=== PATIENT | male | born 1960 | race Caucasian/White ===

== ENCOUNTER 2025-02-21 08:14 | Observation (INO) ==
--- NOTE | 2025-02-18 14:18 | Anesthesiology Consultation ---
Date of Service February 18, 2025 Assessment & Plan (1) Encounter for pre-operative examination: - awaiting 02/18/25 confirmed EKG report. - Per bridge maintainer on 02/18/25: No known infectious disease contacts, current infectious disease symptoms in past 10 days or COVID positive test result in the past 30 days. Chart Review Chart Review: Patient NOT seen in Pre Admission Testing History Surgery Operation Date: 02/21/25 11:00 Proposed Procedures p Right Knee Extraction of Knee Implants and Placement of Articulated Spacer - Lamine Mcdonald MD Height/Weight Height: 6 ft Weight: 104.326 kg Allergies Allergy/AdvReac Type Severity Reaction Status Date / Time No Known Drug Allergies Allergy Unknown Verified 02/18/25 13:38 adhesive tape AdvReac Unknown use Verified 02/18/25 13:38 caution...hx PULLED SKIN Medications Home Medications Medication Instructions Recorded Confirmed Last Taken atorvastatin 20 mg tablet (Lipitor) 20 mg PO HS 05/11/21 02/18/25 12/14/21 diphenhydramine HCl 12.5 mg 12.5 mg PO DAILY PRN allergies 06/10/21 02/18/25 12/14/21 chewable tablet diclofenac sodium 100 mg 75 mg PO BID 12/08/21 02/18/25 12/14/21 tablet,extended release 24 hr doxycycline monohydrate 100 mg 100 mg PO BID 02/18/25 02/18/25 Unknown capsule metoprolol tartrate 25 mg tablet 25 mg PO QAM 02/18/25 02/18/25 Unknown pantoprazole 20 mg tablet,delayed 20 mg PO BID 02/18/25 02/18/25 Unknown release (Protonix) sulfamethoxazole 800 1 tab PO BID 02/18/25 02/18/25 Unknown mg-trimethoprim 160 mg tablet (Bactrim DS) Past Medical History Medical History Arthritis GERD (gastroesophageal reflux disease) controlled, stable per pt Hyperlipidemia Hypertension controlled, stable per pt Obesity Past Family History Family History Mother Family history of diabetes mellitus Other Heart disease No family history of adverse response to anesthesia Past Surgical History Surgical History H/O nasal septoplasty H/O reconstruction of anterior cruciate ligament tear History of cholecystectomy History of colonoscopy History of esophagogastroduodenoscopy (EGD) History of herniorrhaphy ABDOMINAL HERNIA REPAIR History of knee surgery R knee manipulation, EUA 03/17/21: GA: LMA#5 History of repair of rotator cuff RT/LEFT History of surgery on arm RT/LEFT BICEP TENDON REPAIR History of total right knee replacement MAY 2021 Social History Smoking Status: Never smoker Do You Dip or Chew Tobacco: No Hx Alcohol Use: Yes alcohol intake frequency: holidays/special occasions only Hx Substance Use: No substance use type: does not use Lab Results Anesthesia Preop Results Results Anesthesia Widget: WBC 7.23 K/ul (4.8-10.8) 02/18/25 Hgb 13.0 g/dL (14.0-18.0) L 02/18/25 Hct 39.9 % (42.0-52.0) L 02/18/25 Plt 386 K/uL (130-400) 02/18/25 Na 135 mmol/L (136-145) L 02/18/25 K 4.0 mmol/L (3.5-5.1) 02/18/25 Cl 99 mmol/L (98-107) 02/18/25 CO2 29 mmol/L (21-32) 02/18/25 BUN 19 mg/dl (6-23) 02/18/25 Creat 1.00 mg/dl (0.6-1.4) 02/18/25 Glucose Level 82 mg/dl (70-99(Fasting)) 02/18/25 PT 11.0 Seconds (9.0-12.0) 02/18/25 PTT 27 Seconds (21-31) 02/18/25 INR 1.0 (0.9-1.1) 02/18/25 Blood Type A Positive 02/18/25 Antibody Screen NEGATIVE 02/18/25 Testing Chest X-Ray Date: 02/18/25 Normal chest radiograph
[2025-02-21] MEDS: LR 15ML/HR IV SCH (09:20)
--- NOTE | 2025-02-21 10:10 | History & Physical Bridge Note ---
Date of Service February 21, 2025 History & Physical Bridge Note I have examined the patient, reviewed the History & Physical and in the interval since the performance of the History & Physical I have noted the following changes of clinical significance:Consent and site verified. Reemphasized need for wound care to prevent recurrence of infection. DVT PE ED prophylaxis emphasized. Range of motion to tolerance. Weightbearing as tolerated to tolerance. Will likely need 6 weeks of IV antibiotic treatment followed by reassessment with aspiration after off antibiotics for several weeks. Secondary infection total knee replacement from septicemia from cellulitis right lower extremity following Achilles tendon surgery. no changes noted
[2025-02-21] MEDS ORDERED: LIDOCAINE 2% 2 ML VIAL/AMP(20MG/ML) INFIL ONE (10:24)
[2025-02-21] MEDS ORDERED: MIDAZOLAM HCL 1 MG/ML 2ML VIAL ONE (10:24)
[2025-02-21] MEDS ORDERED: PROPOFOL IV EMULSION 10 MG/ML 20 ML VIAL IV ONE ×2 (10:24→13:25)
[2025-02-21] MEDS ORDERED: ONDANSETRON INJ 2 MG/ML 2 ML VIAL ONE ×2 (10:24→13:12)
[2025-02-21] MEDS ORDERED: ROCURONIUM BROMIDE 10 MG/ML 5 ML VIAL IV ONE ×3 (10:25→12:57)
[2025-02-21] MEDS ORDERED: ACETAMINOPHEN 1000 MG/100 ML IV IV ONE (10:29)
[2025-02-21] MEDS ORDERED: ONDANSETRON INJ 2 MG/ML 2 ML VIAL IV PRN ×2 (10:35→15:17)
[2025-02-21] MEDS ORDERED: ATROPINE SULFATE 0.1 MG/ML 10ML SYR IV PRN (10:35)
[2025-02-21] MEDS: VANCOMYCIN HCL 1000MG/20ML VIAL ONE ×2 (11:30→11:31)
[2025-02-21] MEDS ORDERED: SUGAMMADEX SODIUM 200 MG/2 ML VIAL IV ONE ×2 (12:57→13:37)
[2025-02-21] MEDS ORDERED: KETOROLAC 30 MG/ML VIAL ONE (13:20)
--- NOTE | 2025-02-21 13:37 | Post Operative Brief Note ---
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 Postop diagnosis same I identified the patient and participated in the time-out.: Yes Procedure Operation Date: 02/21/25 11:00 <No data on this case meets the specified criteria> Excisional arthroplasty removal of all cement right total knee replacement removal of tibial screw remote ACL reconstruction right knee Surgeon Lamine Mcdonald MD Collection Clerk pasha no resident or fellow available Estimated Blood Loss 100 Findings Consistent with Post-Op Diagnosis Cloudy fluid no gross purulence implants were not loose heterotopic ossification hypertrophic synovium Fluids 1400 cc of fluid Complications None
--- NOTE | 2025-02-21 13:43 | Operative Report ---
Post Operative Report Pre & Post Diagnosis Operation Date: 02/21/25 11:00 <No data on this case meets the specified criteria> Periprosthetic joint infection right total knee replacement will retained tibial hardware from remote ACL reconstruction. Postop diagnosis same I identified the patient and participated in the time-out.: Yes Procedure Operation Date: 02/21/25 11:00 <No data on this case meets the specified criteria> Excisional arthroplasty for septic total joint replacement right knee from remote infection from septicemia secondary to Achilles tendon procedure x 2 done elsewhere. Retained hardware status post remote ACL reconstruction right knee Surgeon Lamine Mcdonald MD Academic Support Coordinator pasha no resident or fellow available Estimated Blood Loss 100 Findings Consistent with Post-Op Diagnosis Cloudy fluid no gross purulence hypertrophic synovium heterotopic ossification implants were not loose. Fluids 1400 cc Specimens Bone pathology and culture Drains None Complications None Indications Positive culture x 2 verified by Synovasure for Staph aureus bacteria same as what was cultured for his septicemia from his Achilles tendon Description of Procedure After the patient was appropriate notified site verified consent verified antibiotics confirmed as being given the right lower extremity was prepped and draped in his routine fashion. Tourniquet was inflated to 275 mmHg of exsanguination of the limb and rubber bands for total of 96 minutes. The old incision was utilized and slightly extended proximally for about a centimeter. Full-thickness flaps raised. The joint was then opened. There was hypertrophic thickening of the tissue and synovium noticed and heterotopic ossification there was cloudy fluid but no gross purulence. So we mention that this was cultured and advanced including Synovasure which revealed the same organism from his previous septicemia from his previous Achilles tendon surgery on the same side. This is a staph aureus organism sensitive to everything. Once extensive synovectomy was completed and the patella was able to be everted the knee was then flexed. The patella was addressed first the saw was used to transect the pit pegs and then the bur was used to get out the remaining cement and poly. This was then irrigated and everything was cleaned out. The knee was then flexed and the femur was addressed first using a saw Genny and was loosened up avoid the margins of the femur was then ultimately removed there was no significant fracture created or no major bone loss noted. This was then all cleaned of any synovial tissue the canal was open there was no retained purulence behind that. The tibia was then addressed that was a subluxated this was used and a bur was used to again loosen up everything it was then impacted proximally removed significant cement removal was required for this into the proximal tibia and canal. This was all removed none was left. The wound was then irrigated with 1000 cc of Pulsavac and then a whole bottle of Irrisept and then another 2000 with Pulsavac. Once this was all cleaned out everything looked good the articulating spacers large femur and medial tibia were then applied. It was then welded with loose cement and then after 12 minutes everything cured everything looked good the knee was able to be flexed from 0 to 90 degrees without issues. The wounds irrigated 1 final time and closed with #2 Vicryl 2-0 Vicryl and stainless steel clips from the capsule to the subcutaneous tissue to the skin sequentially. EBL was roughly 100 cc when the tourniquet was let down and bleeding points controlled electrocautery. Ortho mix was injected around the incision site. Patient was then transferred recovery in satisfactory descending dressing applied with a rubber Kenney cotton and a knee immobilizer. To be weightbearing as tolerated but will keep his knee still for 7 to 10 days until his wound heals. With a lot of create any kind of drainage or fistula. Summary of implants femoral 53 AP large femoral articulating spacer tibia 70 mm medial lateral. DVT PE prophylaxis to start tomorrow. Will obtain ID consult for antibiotic recommendations and is likely going to be Ancef 3 times a day dose to be determined by ID on the 2 g and initiate anticoagulation tomorrow. Midline was placed today to be discharged once everything is arranged as an outpatient basis. I attest to the content of the Intraoperative Record and any orders documented therein. Any exceptions are noted below.
--- NOTE | 2025-02-21 13:48 | Discharge Summary ---
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 Principal Diagnosis Periprosthetic joint infection right knee retained hardware right tibia Discharge Data Allergies Allergy/AdvReac Type Severity Reaction Status Date / Time No Known Drug Allergies Allergy Unknown Verified 02/21/25 08:35 adhesive tape AdvReac Unknown use Verified 02/21/25 08:35 caution...hx PULLED SKIN Vaccinations None Consultations ID consult nurse consult for PICC line Procedures Performed Operation Date: 02/21/25 11:00 Actual Procedures p Right Knee Extraction Implants and Placement of Articulated Spacer(Right) - Lamine Mcdonald MD removal of tibial screw right tibia post ACL remote Ordered Studies X-rays culture pathology Diabetes Follow up None Hospital Course (1) Right knee DJD: ID consult and long-term antibiotic treatment articulating spacer with cement antibiotics Plan Discharge to home when antibiotic treatment is finalized. Total Time Total Time Spent Total Time Spent (In Minutes): 15 Discharge Plan Discharge Items Reason For Visit: post op explant right TKA for infection Discharge Diagnosis: Periprosthetic joint infection right knee Follow-up/Referrals: Bobo Robertson PA-C [Physician Agricultural Adviser] - 02/28/25 11:30 am Hui Borden D.O. [Primary Care Provider] - Add Attending Provider Instructions: DIET: * Resume previous diet. MEDICATIONS: * Please take your prescriptions as instructed at your pre-op appointment and/or see medication discharge instructions listed above. * If concerns develop, call your physician's office at . SPECIAL CARE INSTRUCTIONS: * Ice/Elevate as instructed. * Keep dressing clean, dry, intact. * Your surgical extremity may be discolored due to prepping agents used on the skin. A bluish-green tint is a normal variant and should not cause alarm. Call your doctor at [phone] if: * Temperature above 101 degrees * Pain not relieved by pain medicine ordered * There is increased drainage or redness from any incision * You have any unanswered questions, problems or concerns. FOLLOW UP VISIT: * If not already scheduled, please call the office at to schedule a follow-up appointment. Stand-Alone Forms: My [facility] Medications and DC Order Prescriptions: No Action diclofenac sodium 100 mg Tablet Extended Release 24 Hr 75 mg PO BID Patient Comments: 75 twice a day atorvastatin [Lipitor] 20 mg Tablet 20 mg PO HS Patient Comments: UNSURE IF DOSE CORRECT diphenhydramine HCl 12.5 mg Tablet,Chewable 12.5 mg PO DAILY PRN (Reason: allergies) pantoprazole [Protonix] 20 mg Tablet,Delayed Release (Dr/Ec) 20 mg PO BID metoprolol tartrate 25 mg Tablet 25 mg PO QAM sulfamethoxazole-trimethoprim [Bactrim DS] 800-160 mg Tablet 1 tab PO BID doxycycline monohydrate 100 mg Capsule 100 mg PO BID Admission Data Admit Date/Time: 02/21/25 14:02 Attending Provider: Lamine Mcdonald Admit Provider: Lamine Mcdonald Primary Care Provider: Hui Borden Other Providers: Sharlene Travis
--- NOTE | 2025-02-21 13:48 | Orthopedic Progress Note ---
Date of Service February 21, 2025 Orthopedic Progress Note Tolerated extraction of periprosthetic joint infection and tibial screw right knee. Vital signs stable afebrile. Neurovascularly baseline. X-rays pending. ID consult pending PICC line placed. Case management to arrange for discharge plan. Can be discharged anytime when antibiotic outpatient program is established.
--- NOTE | 2025-02-21 13:54 | Operative Report ---
Post Operative Report Pre & Post Diagnosis Operation Date: 02/21/25 11:00 Pre-Op Diagnosis: Right Total Knee Infection Post-Op Diagnosis: Right Total Knee Infection I identified the patient and participated in the time-out.: Yes Procedure Operation Date: 02/21/25 11:00 Actual Procedures p Right Knee Extraction Implants and Placement of Articulated Spacer(Right) - Lamine Mcdonald MD Surgeon Lamine Mcdonald M.D. Classified Copy Control Clerk Kaylie Pantoja PA-C; no resident or fellow available Estimated Blood Loss 100 Findings Consistent with Post-Op Diagnosis Specimens bone and soft tissue to pathology and for culture Anesthesia Type General Regional Description of Procedure Patient was taken to the operating room and placed under general anesthesia. They were given 2 g of IV Ancef for surgical prophylaxis and 1 gm IV TXA for bleeding prophylaxis. Time out was performed. They were prepped and draped in routine sterile fashion. I was present during the entire case and assisted with positioning, draping, instrumentation, closure and dressings. Please see Dr. Mcdonald's operative report for further details regarding today's procedure. Patient was awakened and transferred to the recovery room in stable condition. I attest to the content of the Intraoperative Record and any orders documented therein. Any exceptions are noted below.
[2025-02-21] MEDS: HYDROmorphone INJ 2 MG/ML SYR/VIAL IV PRN (14:03)
[2025-02-21] MEDS: HYDROmorphone INJ 1 MG/ML SYRINGE IV STA (14:23)
--- NOTE | 2025-02-21 14:30 | XRay Report ---
TWO VIEWS RIGHT KNEE CLINICAL HISTORY: Postoperative examination. Infected arthroplasty. FINDINGS: AP and crosstable lateral portable views of the right knee are compared to study dated 01/13. A right knee arthroplasty has been removed, with placement of an articulated spacer device. T here has been undersurface remodeling of the patella. No acute fracture is seen. There are expected p ostoperative changes around the knee including skin clips, soft tissue edema, and subcutaneous gas. A calcified fabella is incidentally noted. IMPRESSION: Expected postoperative changes status post removal of a right knee arthroplasty with plac ement of an articulated spacer device. No acute fracture is seen. ACT 112: Negative or not required by law. Electronically signed by: Himanshu Ponce M.D. 02/21/2025 2:28 PM
--- NOTE | 2025-02-21 15:15 | Anesthesiology Progress Note ---
Date of Service February 21, 2025 Anesthesia Post Procedure Vital Signs Vital Signs: Temp Pulse Pulse Resp BP Pulse Ox O2 Del Method 02/21/25 15:05 80 12 107/78 94 Oxymask 02/21/25 14:50 80 14 129/72 96 Oxymask 02/21/25 14:43 36.6 C 81 16 129/77 95 Oxymask 02/21/25 14:30 78 12 141/85 H 97 Oxymask 02/21/25 14:20 80 12 139/89 94 Oxymask 02/21/25 14:10 83 15 149/88 H 97 Oxymask 02/21/25 14:00 79 12 144/91 H 96 Oxymask 02/21/25 13:50 36.6 C 82 18 138/84 97 Oxymask 02/21/25 08:23 37.2 C 80 18 130/89 94 Room Air O2 Flow Rate 02/21/25 15:05 3 02/21/25 14:50 3 02/21/25 14:43 3 02/21/25 14:30 3 02/21/25 14:20 3 02/21/25 14:10 6 02/21/25 14:00 6 02/21/25 13:50 6 02/21/25 08:23 Pain Intensity Right Knee: Pain Intensity: 6 Transfer of Care Handoff Completed per policy Notes Mental Status: alert / awake / arousable Patient Amnestic to Procedure: Yes Nausea / Vomiting: adequately controlled Pain: adequately controlled Airway Patency, RR, SpO2: stable & adequate BP & HR: stable & adequate Hydration State: stable & adequate Anesthetic Complications: no major complications apparent
[2025-02-21] MEDS ORDERED: NALOXONE HCL 0.4 MG/1 ML VIAL/CARP IV PRN (15:17)
[2025-02-21] MEDS ORDERED: MAGNESIUM HYDROXIDE SUSP 30 ML UDC PO PRN (15:17)
[2025-02-21] MEDS ORDERED: TAMSULOSIN HCL 0.4 MG CAP PO PRN (15:17)
[2025-02-21] MEDS ORDERED: METOCLOPRAMIDE HCL INJ 5 MG/ML 2 ML VIAL IV PRN (15:17)
[2025-02-21] MEDS ORDERED: diphenhydrAMINE 50 MG/ML VIAL IV PRN (15:17)
[2025-02-21] MEDS ORDERED: HYDROmorphone INJ 0.5 MG/0.5 ML SYR IV PRN (15:17)
--- NOTE | 2025-02-21 15:50 | Infectious Disease Consult ---
Date of Consultation February 21, 2025 Assessment & Plan (1) Infected prosthetic knee joint: (2) MSSA bacteremia: Plan Problems: #R knee MSSA PJI s/p explant and spacer placement (02/21) #MSSA bacteremia 01/03/2025 s/p 14 days oxacillin Micro: 02/21 OR #2 R tibia bone cement interface cx: pending. GS no org 02/21 OR #1 R femur bone cement interface cx: pending. GS no org 02/14 R knee synovial fluid cx: MSSA 01/23 BCx x2: NG 01/05 BCx x2: NG 01/03 BCx x2: MSSA in 06/15 bottles Abx: Cefazolin 02/21 - present 65 yo M with history of R knee ACL reconstruction (1995) and DJD s/p R TKA with removal of femoral screw (06/10/21), R achilles tendon repair (06/2024, 11/2024), recent admission to [facility] 01/03-01/08/25 with fevers, RLE swelling/erythema, found to have MSSA bacteremia 01/03 (cleared from BCx 01/05, does not appear TTE was performed), and discharged on oxacillin to complete a total 14 day course through ~01/19 via midline. After finishing the IV antibiotics, his knee pain increased and swelling developed. His knee was aspirated in clinic on 02/14 and grew MSSA. Synovial fluid with WBC 76,230, 96.8% neutrophils. He was taken to the OR on 02/21 for removal of hardware and spacer placement. Was reportedly on Bactrim and doxycycline prior to admission. Pt is afebrile, VSS. Labs from 02/18 show no leukocytosis, ESR 112, CRP 4.59. Per operative note, there was cloudy fluid but no gross purulence. OR cultures sent and pending, with no organisms seem on gram stain. Recommendations: - Continue cefazolin 2 g IV q8h for MSSA PJI. For ease of dosing at home, could be administered as cefazolin 6 g slow continuous infusion over 24 hours via portable pump - Will need PICC line for 6 weeks of IV antibiotics - Follow-up OR cultures - Ordered TTE to evaluate for endocarditis, as it appears this was not done in 12/2024 when he was admitted with MSSA bacteremia Will continue to follow Consultation Information This patient recommendation is based on a telemedicine consult request which was completed asynchronously through chart review and information provided by the primary physician. The patient was not seen or examined today. The evaluation is consultative in nature and all patient care and treatment decisions can either be accepted or rejected by the patient's primary hospital-based treating physi anderson using their own independent medical judgment for their patient. Manager Clinical contact information: Please call [facility] [phone]. (Phone Number For Physician Use Only) Time Spent Reviewing Chart: 31+ minutes History of Present Illness Reason for Consultation: PJI Attending Physician: Lamine Mcdonald MD History of Present Illness 65 yo M with history of R knee ACL reconstruction (1995) and DJD s/p R TKA with removal of femoral screw (06/10/21), R achilles tendon repair (06/2024, 11/2024), recent admission to [facility] 01/03-01/08/25 with fevers, RLE swelling/erythema, found to have MSSA bacteremia 01/03 (cleared from BCx 01/05, does not appear TTE was performed), and discharged on oxacillin to complete a total 14 day course through ~01/19 via midline. After finishing the IV antibiotics, his knee pain increased and swelling developed. His knee was aspirated in clinic on 02/14 and grew MSSA. Synovial fluid with WBC 76,230, 96.8% neutrophils. He was taken to the OR on 02/21 for removal of hardware and spacer placement. Was reportedly on Bactrim and doxycycline prior to admission. Pt is afebrile, VSS. Labs from 02/18 show no leukocytosis, ESR 112, CRP 4.59. Per operative note, there was cloudy fluid but no gross purulence. OR cultures sent and pending, with no organisms seem on gram stain. Allergies Allergy/AdvReac Type Severity Reaction Status Date / Time No Known Drug Allergies Allergy Unknown Verified 02/21/25 08:35 adhesive tape AdvReac Unknown use Verified 02/21/25 08:35 caution...hx PULLED SKIN Home Medications Medication Instructions Recorded Confirmed Type atorvastatin 20 mg tablet (Lipitor) 20 mg PO HS 05/11/21 02/21/25 History diphenhydramine HCl 12.5 mg 12.5 mg PO DAILY PRN allergies 06/10/21 02/21/25 History chewable tablet diclofenac sodium 100 mg 75 mg PO BID 12/08/21 02/21/25 History tablet,extended release 24 hr doxycycline monohydrate 100 mg 100 mg PO BID 02/18/25 02/21/25 History capsule metoprolol tartrate 25 mg tablet 25 mg PO QAM 02/18/25 02/21/25 History pantoprazole 20 mg tablet,delayed 20 mg PO BID 02/18/25 02/21/25 History release (Protonix) sulfamethoxazole 800 1 tab PO BID 02/18/25 02/21/25 History mg-trimethoprim 160 mg tablet (Bactrim DS) Patient History Medical History (Updated 02/21/25 @ 16:07 by Sharlene Travis MD) MSSA bacteremia Obesity Arthritis GERD (gastroesophageal reflux disease) controlled, stable per pt Hypertension controlled, stable per pt Hyperlipidemia Surgical History History of knee surgery R knee manipulation, EUA 03/17/21: GA: LMA#5 History of total right knee replacement MAY 2021 H/O reconstruction of anterior cruciate ligament tear History of surgery on arm RT/LEFT BICEP TENDON REPAIR History of repair of rotator cuff RT/LEFT History of esophagogastroduodenoscopy (EGD) History of colonoscopy History of herniorrhaphy ABDOMINAL HERNIA REPAIR History of cholecystectomy H/O nasal septoplasty Family History Mother Family history of diabetes mellitus Other Heart disease No family history of adverse response to anesthesia Social History Smoking Status: Never smoker Second Hand Exposure: No; Do You Dip or Chew Tobacco: No; Tobacco Cessation Education Requested by Patient: No Hx Alcohol Use: Yes Hx Substance Use: No Preferred Language: Polish Communication Ability: Effective Hearing Ability: Normal Barge Engineer Required: No Beliefs That Will Affect Care: None marital status: Current Living Situation: Spouse current occupational status: employed current occupation: construction Other Information That Helps Us Care for You: No Feels Safe at Home: Yes Safety Concerns: Feels Safe At This Time Assistive Devices: Crutches and Walker Results & Data Vital Signs (Past 12 Hours) Vital Signs Temp Pulse Pulse Resp BP BP Pulse Ox 02/21/25 15:22 36.6 C 75 18 118/70 95 02/21/25 15:05 80 12 107/78 94 02/21/25 14:50 80 14 129/72 96 02/21/25 14:43 36.6 C 81 16 129/77 95 02/21/25 14:30 78 12 141/85 H 97 02/21/25 14:20 80 12 139/89 94 02/21/25 14:10 83 15 149/88 H 97 02/21/25 14:00 79 12 144/91 H 96 02/21/25 13:50 36.6 C 82 18 138/84 97 02/21/25 08:23 37.2 C 80 18 130/89 94 O2 Del Method O2 Flow Rate 02/21/25 15:22 Nasal Cannula 2 02/21/25 15:05 Oxymask 3 02/21/25 14:50 Oxymask 3 02/21/25 14:43 Oxymask 3 02/21/25 14:30 Oxymask 3 02/21/25 14:20 Oxymask 3 02/21/25 14:10 Oxymask 6 02/21/25 14:00 Oxymask 6 02/21/25 13:50 Oxymask 6 02/21/25 08:23 Room Air
[2025-02-21] MEDS: SODIUM CHLORIDE 0.9% 1,000 ML IV SCH (15:57)
[2025-02-21] MEDS: KETOROLAC TROMETHAMINE 15 MG/ML VIAL IV SCH (15:57)
[2025-02-21] MEDS: ACETAMINOPHEN 500 MG TAB PO SCH (15:57)
[2025-02-21] MEDS: HYDROmorphone INJ 1 MG/ML SYRINGE ONE (16:07)
--- NOTE | 2025-02-21 16:52 | Orthopedic Progress Note ---
Date of Service February 21, 2025 Assessment & Plan Admission and Anticipated Discharge Date Admission Date: February 21, 2025 Orthopedic Progress Note Postop check status post excisional arthroplasty and removal of hardware left tibia periprosthetic right knee infection. His pain is well-managed at this point in time. He denies any chest pain shortness of breath fever chills nausea vomiting or headache. Vital signs are stable he is afebrile. Neurovascular check femoral sciatic nerve is intact. Can do a straight leg raise. Good ankle pumps good strength. No decrease sensation. Wound dressing clean dry and intact. Assessment overall doing well continue present care pathway. Continue Ancef 2 g IV solid-state every 8 hours. If we can get things arranged with medication tomorrow from chart well we will be able to get him discharged. He is not to start range of motion until further notice. Will follow-up in a week. Potentially start it then if he is doing well and the incision looks clean and dry. Follow-up in AM.
[2025-02-21] MEDS: TRANEXAMIC ACID 1,000 MG **IV Pre-op IV SCH (17:35)
[2025-02-21] MEDS: ROPIVACAINE 0.5% HCL/PF 246 MG, Ketorolac (*for OR use only*) 30 MG, EPINEPHrine 30MG/3... INFIL SCH (17:35)
[2025-02-21] MEDS: ATORVASTATIN 20 MG TAB PO SCH (20:29)
[2025-02-21] MEDS: SENNA 8.6 MG TAB PO SCH (20:29)
[2025-02-21] MEDS: DOCUSATE SODIUM 100 MG CAP PO SCH (20:29)
[2025-02-22] MEDS: HYDROmorphone INJ 1 MG/ML SYRINGE IV PRN (03:26)
--- NOTE | 2025-02-22 06:37 | Orthopedic Progress Note ---
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 At this point in time he is doing well. He denies chest pain shortness of breath fever chills nausea vomit or headache. Vital signs are stable he is afebrile. Neurovascular check femoral sciatic nerve is intact. Wound dressing clean dry and intact knee immobilizer adjusted. At this point in time he can be weightbearing as tolerated with knee immobilizer on will not bend the knee for at least a week. Plan is to leave present dressing in place to since it is clean and dry. Assessment doing well continue discharge planning. If he can get chart well medications to be established and only can be discharged today. To be on Ancef 2 g IV solid-state every 8 hours for 6 weeks. Appreciate ID consult.
[2025-02-22 07:05] LABS: Hematocrit (blood only) 33.6 % (42.0-52.0); Hemoglobin 11.1 g/dL (14.0-18.0); Mean Corpuscular Hemoglobin 28.6 pg (25.0-34.0); Mean Corpuscular Volume 86.6 fL (80.0-100.0); Platelet Count 308 K/uL (130-400); RDW Standard Deviation 40.4 fL (36.4-46.3); Red Blood Count 3.88 M/uL (4.70-6.10); White Blood Count 8.55 K/ul (4.8-10.8)
[2025-02-22 07:13] VITALS: BP 127/77; PULSE 91; RESP 16; TEMP 98.8; O2SAT 95
[2025-02-22 07:25] LABS: Anion Gap 8.0 (3-11); Blood Urea Nitrogen 23.0 mg/dl (6-23); Calcium 8.5 mg/dl (8.6-10.3); Carbon Dioxide 27.0 mmol/L (21-32); Chloride 97.0 mmol/L (98-107); Creatinine Clr Calc Pharmacy 84.5 ml/min; Glucose 127.0 mg/dl (70-99(Fasting)); Potassium 4.1 mmol/L (3.5-5.1); Sodium 132.0 mmol/L (136-145)
[2025-02-22] MEDS: dexAMETHasone 10 MG in SYRINGE 0 ML IV SCH (07:57)
[2025-02-22] MEDS: METOPROLOL TARTRATE 25 MG TAB PO SCH (08:01)
[2025-02-22] MEDS: APIXABAN 2.5 MG TAB PO SCH (08:01)
[2025-02-22] MEDS: MULTIVITAMIN TAB PO SCH (08:02)
--- NOTE | 2025-02-22 09:19 | Infectious Disease Progress Nt ---
Date of Service February 22, 2025 Assessment & Plan (1) Infected prosthetic knee joint: (2) MSSA bacteremia: Plan Problems: #R knee MSSA PJI s/p explant and spacer placement (02/21) #MSSA bacteremia 01/03/2025 s/p 14 days oxacillin Micro: 02/21 OR #2 R tibia bone cement interface cx: Staph aureus. GS no org 02/21 OR #1 R femur bone cement interface cx: Staph aureus. GS no org 02/14 R knee synovial fluid cx: MSSA 01/23 BCx x2: NG 01/05 BCx x2: NG 01/03 BCx x2: MSSA in 06/15 bottles Abx: Cefazolin 02/21 - present 65 yo M with history of R knee ACL reconstruction (1995) and DJD s/p R TKA with removal of femoral screw (06/10/21), R achilles tendon repair (06/2024, 11/2024), recent admission to [facility] 01/03-01/08/25 with fevers, RLE swelling/erythema, found to have MSSA bacteremia 01/03 (cleared from BCx 01/05, does not appear TTE was performed), and discharged on oxacillin to complete a total 14 day course through ~01/19 via midline. After finishing the IV antibiotics, his knee pain increased and swelling developed. His knee was aspirated in clinic on 02/14 and grew MSSA. Synovial fluid with WBC 76,230, 96.8% neutrophils. He was taken to the OR on 02/21 for removal of hardware and spacer placement. Was reportedly on Bactrim and doxycycline prior to admission. Pt is afebrile, VSS. Labs from 02/18 show no leukocytosis, ESR 112, CRP 4.59. Per operative note, there was cloudy fluid but no gross purulence. OR cultures sent and growing Staph aureus, sensitivities pending but likely MSSA as prior. Did order a TTE to evaluate for endocarditis, as it appears this was not done in 12/2024 when he was admitted with MSSA bacteremia--although reassuringly, it appears that he had an intervening blood culture on 01/23 that was NG per outside records. This could be done as outpatient if pt is discharging. Regardless, pt is discharging on 6 weeks of IV antibiotics which would cover endocarditis anyway. Recommendations: - Continue cefazolin 2 g IV q8h via PICC for MSSA PJI to complete a 6 week course through 04/03/25. For ease of dosing at home, this could alternatively be administered as cefazolin 6 g slow continuous infusion over 24 hours via portable pump - Check weekly CBC with diff, CMP while on cefazolin to monitor for toxicity - I will arrange for OPAT follow-up. See below antibiotic discharge summary Will sign off ID Outpatient Discharge summary, Discharging Physician please order the following on discharge: Diagnosis: R knee PJI s/p explant and spacer Organism: MSSA Antibiotic: (dose and frequency) cefazolin 2 g IV q8h (or cefazolin 6 g IV continuous infusion over 24 hours via portable pump) Start of therapy: 02/21/25 End of therapy: 04/03/25 Labs should be faxedto:[facility] [phone] Labs needed and frequency: CBC with diff, CMP weekly The Infectious Disease (ID) clinic will contact the patient to schedule a follow-up appointment. If you have not heard from the clinic within one week of discharge, please call the ID clinic at [phone] ask for [facility]. Clinic Address [address] [place] [id number] Office (P) [phone] Appointment-time frame:~5 weeks Admission and Anticipated Discharge Date Admission Date: February 21, 2025 Subjective Subsequent visit was provided via telemedicine using two-way real-time interactive telecommunication between the patient and the telemedicine provider. For the duration of the visit, the provider was performing the assessment from a different facility than the patient. This includesuse of bluetooth stethoscope forauscultationperformed by the telepresenter that the telemedicine provider can hear if described in the physical exam. [employer] contact information: Please call [facility] . (Phone Number For Physician Use Only) After establishing a telemedicine visit, patient was: Patient was verified with two unique identifiers, Patient/authorized rep acknowledged consent and understanding and Gave permission to continue telehealth session Time Spent with Patient: Subsequent => 25 min Pt denies complaints PICC placed Review of System A complete ROS was performed and is negative except as mentioned in the HPI. Physical Exam Physical Exam: GEN: Well-appearing, in NAD. RESP: No increased work of breathing NEURO: Alert and oriented. Answers all questions appropriately. Speech not slurred. PSYCH: Normal mood, affect appropriate. Results & Data Vital Signs (Past 12 Hours) Vital Signs Temp Pulse Resp BP Pulse Ox O2 Del Method 02/22/25 07:12 37.1 C 91 H 16 127/77 95 Room Air 02/22/25 03:30 36.6 C 96 H 14 133/82 94 Room Air 02/22/25 00:15 36.7 C 76 18 121/76 92 Room Air
--- NOTE | 2025-02-22 13:48 | XCELERA ---
[id number]
== END 2025-02-22 12:38 | disposition home health service (06) ==
LOC: ASU 08:14 → 3E 08:14